=== PATIENT | female | born 1960 | race Hispanic/Latino ===

== ENCOUNTER 2019-04-18 21:39 | Inpatient (IN) | payer OTHER, MEDICARE ==
[~2019-04-18] VITALS: Ht 157.5 cm; Wt 63.9 kg
[2019-04-18 22:16] LABS: BASOPHILS % (AUTO) 0.3 % (0.0-5.0); EOSINOPHILS % (AUTO) 0.1 % (0.0-8.0); HEMATOCRIT 37.4 % (36-48); LYMPHOCYTES % (AUTO) 7.2 % (21.0-51.0); MEAN CORPUSCULAR HEMOGLOBIN 27.5 pg (27.0-33.0); MEAN CORPUSCULAR HGB CONC 32.4 g/dL (32.0-36.0); MONOCYTES % (AUTO) 2.7 % (3.0-13.0); NEUTROPHILS % (AUTO) 89.3 % (40.0-77.0); PLATELET COUNT (AUTO) 429 K/uL (130-400); RED CELL DISTRIBUTION WIDTH 13.9 % (11.0-15.5)
[2019-04-18 22:25] LABS: INR 0.92 (0.85-1.15); PARTIAL THROMBOPLASTIN TIME 26.9 SEC (26.3-35.5); PROTHROMBIN TIME 9.7 SEC (9.6-11.6)
[2019-04-18 22:36] LABS: ALANINE AMINOTRANSFERASE 14 U/L (12-78); ALBUMIN 4.4 g/dL (3.5-5.0); ALCOHOL, BLOOD < 3 mg/dL (0-10); AMYLASE 135 U/L (25-115); ASPARTATE AMINOTRANSFERASE 15 U/L (10-37); BILIRUBIN,TOTAL 0.3 mg/dL (0.2-1.0); CARBON DIOXIDE 19 mmol/L (21-32); CHLORIDE 99 mmol/L (101-111); CREATINE KINASE, TOTAL 34 U/L (21-232); CREATININE 1.8 mg/dL (0.5-1.5); GLOMERULAR FILTR. RATE CALC 31 mL/min (>60); GLUCOSE,RANDOM 147 mg/dL (70-105); LIPASE 674 U/L (114-286); POTASSIUM 3.5 mmol/L (3.5-5.1); SODIUM SERUM 132 mmol/L (136-145); TOTAL PROTEIN, SERUM 8.3 g/dL (6.0-8.3)
[2019-04-18 22:37] LABS: ACETAMINOPHEN < 1 mcg/mL (10-30); SALICYLATE < 2.8 mg/dL (2.8-20.0)
[2019-04-18 22:38] LABS: UREA NITROGEN, BLOOD 84 mg/dL (7-18)
[2019-04-18 22:48] LABS: MAGNESIUM 3.3 mg/dL (1.80-2.40)
[2019-04-18 22:49] LABS: THYROID STIMULATING HORMONE 0.38 uIU/mL (0.36-3.74)
[2019-04-18] MEDS ORDERED: SODIUM CHLORIDE 0.9% 1000ML 1,000 ML IV ONE ×2 (23:11→23:49)
[2019-04-18 23:56] LABS: BILIRUBIN,URINE Negative (NEGATIVE); COLOR,URINE Yellow (YELLOW); GLUCOSE, URINE (UA) Negative (NEGATIVE); KETONES,URINE 15 mg/dL (NEGATIVE); LEUKOCYTE ESTERASE ,URINE Negative (NEGATIVE); NITRATE,URINE Negative (NEGATIVE); OCCULT BLOOD,URINE Negative (NEGATIVE); PH,URINE 5.5 (5.0-8.0); PROTEIN,URINE POS 1+ mg/dL (NEGATIVE); UROBILINOGEN,URINE 0.2 mg/dL (0.2-1.0)
[2019-04-19 00:02] LABS: AMPHET/METH SCREEN,URINE NEGATIVE (NEGATIVE); BARBITURATE SCREEN, URINE NEGATIVE (NEGATIVE); BENZODIAZEPINES SCREEN,URINE NEGATIVE (NEGATIVE); CANNABINOID SCREEN,URINE NEGATIVE (NEGATIVE); COCAINE SCREEN,URINE NEGATIVE (NEGATIVE); OPIATE SCREEN,URINE NEGATIVE (NEGATIVE); PHENCYCLIDINE SCREEN,URINE NEGATIVE (NEGATIVE)
[2019-04-19 00:05] LABS: APPEARANCE,URINE SLIGHTLY CLOUDY (CLEAR)
[2019-04-19 00:13] LABS: RBC,URINE None Seen /HPF (0-1); SQUAMOUS EPITHELIAL CELL,UR Rare /HPF (0-2); WBC,URINE None Seen /HPF (0-1)
[2019-04-19 00:14] LABS: AMORPHOUS SEDIMENT,UR Few /LPF (None Seen); BACTERIA,URINE None Seen /HPF (None Seen)
[2019-04-19] MEDS ORDERED: SODIUM BICARB 50MEQ 50ML VIAL ONE (00:40)
[2019-04-19 06:47] LABS: BASOPHILS % (AUTO) 0.4 % (0.0-5.0); EOSINOPHILS % (AUTO) 0.1 % (0.0-8.0); HEMATOCRIT 34.6 % (36-48); MEAN CORPUSCULAR HEMOGLOBIN 27.8 pg (27.0-33.0); MEAN CORPUSCULAR HGB CONC 32.9 g/dL (32.0-36.0); MEAN CORPUSCULAR VOLUME 84.4 fL (79-99); MONOCYTES % (AUTO) 6.2 % (3.0-13.0); NEUTROPHILS % (AUTO) 82.9 % (40.0-77.0); PLATELET COUNT (AUTO) 376 K/uL (130-400); RED CELL DISTRIBUTION WIDTH 13.8 % (11.0-15.5); WHITE BLOOD COUNT (AUTO) 10.6 K/uL (4.8-10.8)
[2019-04-19 06:57] LABS: CREATININE 1.2 mg/dL (0.5-1.5); POTASSIUM 3.5 mmol/L (3.5-5.1)
[2019-04-19 07:00] LABS: ABG BASE EXCESS -1.6 mmol/L (-2.0-3.0); ABG OXYGEN SATURATION 95.8 % (95.0-99.0); ABG PCO2 30 mmHg (32-45)
[2019-04-19 07:07] LABS: ALBUMIN 3.7 g/dL (3.5-5.0); BILIRUBIN,TOTAL 0.3 mg/dL (0.2-1.0); TOTAL PROTEIN, SERUM 7.2 g/dL (6.0-8.3)
[2019-04-19] MEDS ORDERED: ZOSYN 3.375GM+NS 50ML 50 ML IV ONE (08:37)
[2019-04-19] MEDS ORDERED: DEXTROSE 5 % AND 0.9 % NACL 1,000 ML IV ONE (08:37)
[2019-04-19] MEDS: LACTATED RINGERS 1000ML 1,000 ML IV SCH ×2 (10:01→20:01)
[2019-04-19] MEDS ORDERED: MORPHINE SULFATE 2 MG/ML 1ML SYG IVP PRN (10:15)
[2019-04-19] MEDS ORDERED: NITROGLYCERIN 0.4 MG SL TAB SL PRN (10:15)
[2019-04-19] MEDS ORDERED: HYDRALAZINE HCL 20 MG/ML VIAL IV PRN (10:15)
[2019-04-19] MEDS ORDERED: ONDANSETRON HCL 4 MG/2 ML VIAL IVP PRN (10:15)
[2019-04-19] MEDS ORDERED: IPRATROPIUM/ALBUTEROL SULFATE 3 ML SOLUTION IH PRN (10:15)
--- NOTE | 2019-04-19 10:48 | NUR ---
Unable to Assess Patient is confused and unable to answer any questions. SW unable to complete assessment. No family at bedside. Patient on a 1:1 observation at this time. SW will follow up.
[2019-04-19 10:54] LABS: ABG BASE EXCESS -0.9 mmol/L (-2.0-3.0); ABG HCO3 22.4 mmol/L (21.0-28.0); ABG OXYGEN SATURATION 95.6 % (95.0-99.0); ABG PCO2 34 mmHg (32-45)
--- NOTE | 2019-04-19 11:18 | NUR ---
PT CONFUSED AND UNRESPONSIVE AT TIMES, UNABLE TO OBTAIN A HISTORY NO FAMILY MEMBERS WITH PATIENT Addendum: 04/19/19 at 1119 by ANDRIY CANTU Amended: Links added.
[2019-04-19] MEDS ORDERED: ENOXAPARIN SODIUM 30 MG/0.3 ML SQ ONE (11:44)
[2019-04-19 13:42] VITALS: BP 127/69
--- NOTE | 2019-04-19 14:34 | NUR ---
SPOKE TO FANNY SHELDON, PATIENT'S ONLY DAUGHTER, PROVIDED UPDATE ON PATIENT AND ROOM NUMBER, FANNY CONFIRMED [id number] FOR HER MOTHER AND PART OF HER MEDICAL HISTORY.
[2019-04-19] MEDS ORDERED: DEXTROSE 50%-WATER 50 ML DISP.SYRIN IV PRN (14:45)
[2019-04-19] MEDS ORDERED: GLUCAGON 1MG KIT 1 MG ML IM PRN (14:45)
[2019-04-19] MEDS: DEXTROSE 5 % AND 0.9 % NACL 1,000 ML IV SCH ×2 (15:30→22:10)
[2019-04-19] MEDS ORDERED: SUCCINYLCHOLINE CHLORIDE 20 MG/ML 10 ML VIAL IVP ONE (17:19)
[2019-04-19] MEDS ORDERED: ROCURONIUM BROMIDE 10MG/1ML 5ML VL IV ONE (17:19)
[2019-04-19] MEDS ORDERED: ETOMIDATE 2 MG/ML 10 ML VIAL IVP ONE (17:19)
[2019-04-19] MEDS: INSULIN HUMULIN R 100 UNIT/ML 3ML SQ SCH (18:00)
[2019-04-19] MEDS ORDERED: DULO60CA64 PO (18:25)
[2019-04-19] MEDS ORDERED: LITH600C PO (18:25)
[2019-04-19] MEDS ORDERED: ZOLP5TAB8 PO (18:25)
[2019-04-19] MEDS ORDERED: SIMV-43 PO (18:25)
[2019-04-19] MEDS ORDERED: QUET50TA55 PO (18:25)
[2019-04-19] MEDS ORDERED: LITH300T3 PO (18:25)
[2019-04-19] MEDS ORDERED: TIOT4MIS5 IH (18:25)
[2019-04-19] MEDS ORDERED: MONT10TA26 PO (18:25)
[2019-04-19] MEDS ORDERED: BUDE10.22 IH (18:25)
[2019-04-19] MEDS ORDERED: LEVO5TAB13 PO (18:25)
[2019-04-19] MEDS ORDERED: LEVO100T12 PO (18:25)
[2019-04-19] MEDS ORDERED: LISI10TA7 PO (18:25)
[2019-04-19] MEDS ORDERED: LORA2TAB80 PO (18:25)
--- NOTE | 2019-04-19 20:00 | NUR ---
PATIENT IN BED, DAUGHTER SITTING AT BEDSIDE. DX ALTERED MENTAL STATUS AND PANCREATITIS. PATIENT HAS EYES OPEN, INCOMPREHENSIBLE SOUNDS, CRIES AND MOVING ABOUT IN BED. 1:1 SITTER PRESENT FOR PATIENT SAFETY. SR UP X4, PT WITH F/C DRAINING TO GRAVITY WITH CLEAR YELLOW URINE. PT IS NPO, ORAL CARE DONE. WILL CONT TO MONITOR CLOSELY. Addendum: 04/19/19 at 2256 by ELAN FIGUEROA RN RN Amended: Links added.
[2019-04-19] MEDS: ZOSYN 3.375GM+NS 50ML 50 ML IV SCH (20:38)
[2019-04-19 21:51] VITALS: BP 131/62
[2019-04-19 23:00] VITALS: BP 124/69
[2019-04-20 03:00] VITALS: BP 134/66
[2019-04-20] MEDS: ZOSYN 3.375GM+NS 50ML 50 ML IV SCH ×3 (05:38→21:17)
[2019-04-20] MEDS: INSULIN HUMULIN R 100 UNIT/ML 3ML SQ SCH ×4 (06:00→18:00)
[2019-04-20] MEDS: LACTATED RINGERS 1000ML 1,000 ML IV SCH ×4 (06:12→22:00)
[2019-04-20 06:21] LABS: HEMATOCRIT 33.7 % (36-48); MEAN CORPUSCULAR HGB CONC 32.6 g/dL (32.0-36.0); MEAN CORPUSCULAR VOLUME 85.8 fL (79-99); PLATELET COUNT (AUTO) 341 K/uL (130-400); RED BLOOD CELL COUNT(AUTO) 3.93 MIL/uL (4.00-5.50); RED CELL DISTRIBUTION WIDTH 14.2 % (11.0-15.5); WHITE BLOOD COUNT (AUTO) 14.6 K/uL (4.8-10.8)
[2019-04-20 06:34] LABS: ALBUMIN 3.7 g/dL (3.5-5.0); BILIRUBIN,TOTAL 0.4 mg/dL (0.2-1.0); MAGNESIUM 2.8 mg/dL (1.80-2.40); PHOSPHORUS 1.9 mg/dL (2.5-4.9); POTASSIUM 3.3 mmol/L (3.5-5.1); TOTAL PROTEIN, SERUM 7.1 g/dL (6.0-8.3)
[2019-04-20] MEDS ORDERED: LIDOCAINE HCL-MPF 1% 2ML VIAL IV PRN (07:30)
[2019-04-20] MEDS ORDERED: POTASSIUM CHLORIDE 20 MEQ ERTAB PO PRN (07:30)
[2019-04-20 08:00] VITALS: BP 134/66
[2019-04-20] MEDS: FAMOTIDINE/PF 20 MG/2 ML VIAL IV SCH ×2 (09:42→21:23)
[2019-04-20] MEDS: ENOXAPARIN SODIUM 30 MG/0.3 ML SQ SCH (09:42)
[2019-04-20 12:00] VITALS: BP 147/74
--- NOTE | 2019-04-20 16:51 | NUR ---
INITIAL SW spoke with daughter, Maggie Worthy, [phone]. No home services at this time. Daughter states she used to be patient's provider. Services were discontinued over a year ago. Daughter plans to follow up to get services restarted. As per daughter, patient needs help to complete ADL's and does not drive. Daughter states that patient forgets to take her medications or takes the wrong dose at home if she is not reminded. PCP is Dr. Rianna Kelsey. Pharmacy is [facility] located on [address]. Daughter informed SW that patient suffers from Bipolar, Schizophrenia and Depression. Patient is under the care of a Psychiatrist but does not remember the name. Patient has not been in a psychiatric hospital in the past 2 years as per daughter. DCP is home. Patient continues on a 1:1 observation at this time due to being confused. Daughter states that patient was up last night and now sleeping during that day. Addendum: 04/20/19 at 1658 by CATHIE MAHER SS Amended: Links added.
[2019-04-20] MEDS: POTASSIUM CHLORIDE 20MEQ/100ML 100 ML IV PRN (18:26)
[2019-04-20 19:00] VITALS: BP 139/65
[2019-04-20] MEDS ORDERED: LACTATED RINGERS 1000ML 1,000 ML IV ONE (20:24)
[2019-04-20 22:30] VITALS: BP 144/68
--- NOTE | 2019-04-20 22:36 | NUR ---
Patient was transferred to ICU room 206 for lithium toxicity at 2200. Family was made aware through phone call spoke to the daughter. Ordered by SOFTWARE CLERK Enrique Zayas to be transferred to ICU. Zeb was consulted for elevated BUN and lithium toxicity and is aware of patient and new consult.
[2019-04-20 23:30] VITALS: BP 133/62
[2019-04-21] VITALS (49 sets, daily range): BP systolic 79–185; BP diastolic 37–107
[2019-04-21] MEDS: ZOSYN 3.375GM+NS 50ML 50 ML IV SCH ×3 (04:05→21:10)
[2019-04-21] MEDS: LACTATED RINGERS 1000ML 1,000 ML IV SCH (04:08)
[2019-04-21 04:17] LABS: HEMATOCRIT 33.2 % (36-48); MEAN CORPUSCULAR HEMOGLOBIN 27.9 pg (27.0-33.0); MEAN CORPUSCULAR HGB CONC 31.3 g/dL (32.0-36.0); PLATELET COUNT (AUTO) 313 K/uL (130-400); RED BLOOD CELL COUNT(AUTO) 3.73 MIL/uL (4.00-5.50); RED CELL DISTRIBUTION WIDTH 14.6 % (11.0-15.5); WHITE BLOOD COUNT (AUTO) 15.9 K/uL (4.8-10.8)
[2019-04-21 04:31] LABS: ALBUMIN 3.4 g/dL (3.5-5.0); BILIRUBIN,DIRECT 0.1 mg/dL (0.0-0.3); BILIRUBIN,TOTAL 0.4 mg/dL (0.2-1.0); POTASSIUM 3.3 mmol/L (3.5-5.1); TOTAL PROTEIN, SERUM 6.6 g/dL (6.0-8.3)
[2019-04-21] MEDS: POTASSIUM CHLORIDE 20MEQ/100ML 100 ML IV PRN ×2 (05:46→10:36)
[2019-04-21] MEDS: INSULIN HUMULIN R 100 UNIT/ML 3ML SQ SCH ×4 (06:00→18:00)
[2019-04-21] MEDS ORDERED: DEXTROSE 5%-WATER 1,000 ML IV ONE (09:30)
[2019-04-21 10:25] LABS: ABG BASE EXCESS 0.2 mmol/L (-2.0-3.0); ABG HCO3 23.1 mmol/L (21.0-28.0); ABG OXYGEN SATURATION 92.7 % (95.0-99.0); ABG PCO2 33 mmHg (32-45)
[2019-04-21] MEDS: FAMOTIDINE/PF 20 MG/2 ML VIAL IV SCH ×2 (10:34→21:10)
[2019-04-21] MEDS: ENOXAPARIN SODIUM 30 MG/0.3 ML SQ SCH (10:34)
[2019-04-21] MEDS: DEXTROSE 5%-WATER 1,000 ML IV SCH ×2 (10:35→21:10)
[2019-04-21] MEDS ORDERED: THIAMINE HCL 100 MG/ML 2ML VIAL IVP SCH (14:00)
[2019-04-21] MEDS ORDERED: PROPOFOL 1000 MG/100 ML 100 ML IV ONE (15:38)
[2019-04-21] MEDS ORDERED: LORAZEPAM 2 MG/ML 1 ML VIAL ONE (15:52)
[2019-04-21] MEDS ORDERED: COMPOUND IV MISC 1 EACH IVSOLN MISC PRN (16:15)
[2019-04-21] MEDS ORDERED: LORAZEPAM 2 MG/ML 1 ML VIAL IVP ONE (16:30)
[2019-04-21] MEDS ORDERED: PROPOFOL 1000 MG/100 ML IV PRN (16:30)
[2019-04-21] MEDS ORDERED: LORAZEPAM 2 MG/ML 1 ML VIAL IM ONE (16:30)
[2019-04-21] MEDS: FENTANYL 1000MCG+NS 100ML 100 ML IV PRN (16:48)
[2019-04-21 16:53] LABS: ABG BASE EXCESS -0.4 mmol/L (-2.0-3.0); ABG HCO3 22.8 mmol/L (21.0-28.0); ABG OXYGEN SATURATION 99.4 % (95.0-99.0); ABG PCO2 33 mmHg (32-45)
[2019-04-21] MEDS ORDERED: LEVETIRACETAM 500 MG in SODIUM CHLORIDE 0.9% 100 ML IV SCH (21:00)
[2019-04-22] VITALS (63 sets, daily range): BP systolic 85–127; BP diastolic 45–71
[2019-04-22 03:53] LABS: BASOPHILS % (AUTO) 0.3 % (0.0-5.0); EOSINOPHILS % (AUTO) 4.2 % (0.0-8.0); HEMATOCRIT 33.3 % (36-48); LYMPHOCYTES % (AUTO) 25.6 % (21.0-51.0); MEAN CORPUSCULAR HEMOGLOBIN 27.8 pg (27.0-33.0); MEAN CORPUSCULAR VOLUME 92.5 fL (79-99); MONOCYTES % (AUTO) 4.8 % (3.0-13.0); NEUTROPHILS % (AUTO) 64.9 % (40.0-77.0); PLATELET COUNT (AUTO) 235 K/uL (130-400); RED CELL DISTRIBUTION WIDTH 14.6 % (11.0-15.5); WHITE BLOOD COUNT (AUTO) 12.6 K/uL (4.8-10.8)
[2019-04-22 04:08] LABS: ALBUMIN 2.9 g/dL (3.5-5.0); BILIRUBIN,DIRECT 0.1 mg/dL (0.0-0.3); BILIRUBIN,TOTAL 0.4 mg/dL (0.2-1.0); MAGNESIUM 3.3 mg/dL (1.80-2.40); PHOSPHORUS 2.3 mg/dL (2.5-4.9)
[2019-04-22 04:12] LABS: CREATININE 0.9 mg/dL (0.5-1.5)
[2019-04-22] MEDS: ZOSYN 3.375GM+NS 50ML 50 ML IV SCH ×3 (04:30→21:14)
[2019-04-22] MEDS: INSULIN HUMULIN R 100 UNIT/ML 3ML SQ SCH ×4 (06:00→17:59)
[2019-04-22] MEDS: DEXTROSE 5%-WATER 1,000 ML IV SCH ×2 (06:22→14:40)
[2019-04-22] MEDS: MIDAZOLAM HCL 50 MG in SODIUM CHLORIDE 0.9% 50 ML IV SCH (06:29)
[2019-04-22] MEDS ORDERED: LEVETIRACETAM 1,000 MG in SODIUM CHLORIDE 0.9% 100 ML IV SCH (09:45)
[2019-04-22] MEDS: ENOXAPARIN SODIUM 30 MG/0.3 ML SQ SCH (10:32)
[2019-04-22] MEDS: THIAMINE HCL 100 MG/ML 2ML VIAL IVP SCH (10:32)
[2019-04-22] MEDS: FAMOTIDINE/PF 20 MG/2 ML VIAL IV SCH ×2 (10:32→21:15)
[2019-04-22] MEDS: LEVETIRACETAM 1,000 MG in SODIUM CHLORIDE 0.9% 100 ML IV SCH ×2 (10:43→22:19)
[2019-04-22] MEDS: FENTANYL 1000MCG+NS 100ML 100 ML IV PRN (10:45)
--- NOTE | 2019-04-22 13:56 | NUR ---
Attempt to contact family/ No Family Visit Reason for attempt of contact is to discuss plan of care of critically ill patient. Patient is on vasopressors, multiple medications intubated/sedated, critically ill, and interventions need to be done in regards to patients condition, unfortunately patient lacks capacity to make own health care decisions. Family has been attempted to be contacted by phone since no family has been by the bedside or called in more than 24hrs. 2 calls were made to Jewel(son) with no answer, 2 calls were made to Néstor(son) with no answer, but voicemail was left, and 2 calls were made to Alexandro(son) with no answer but voicemail was also left. Addendum: 04/22/19 at 1417 by DEBRA TAYLOR RN Incorrect Patient note
--- NOTE | 2019-04-22 14:27 | NUR ---
RD Notification - Tube Feeding Recommendations 1) Tube feeding recommendations: Jevity 1.5, continuous tube feeding Recommend to initiate feeding at 25mls/hr, increase by 5mls Q5hrs to goal of 45mls/hr (1620kcal/69gm Protein) to meet Pt's nutritional needs. 2) Recommended flushes: 150ml Q6hrs. Recommendations placed in Pt chart. RN notified. RD to continue to monitor. Please notify as additional concerns arise. Thank you. PAULINE Note: Pt admitted with AMS, Pancreatitis, Jermyn toxicity. RD notified for tube feeding recommendations. RD to continue to monitor nutritional labs and tube feeding tolerance. Addendum: 04/22/19 at [address] RD Amended: Links added.
[2019-04-23] VITALS (24 sets, daily range): BP systolic 90–154; BP diastolic 42–78
[2019-04-23] MEDS: DEXTROSE 5%-WATER 1,000 ML IV SCH (03:02)
[2019-04-23 03:49] LABS: BASOPHILS % (AUTO) 0.2 % (0.0-5.0); EOSINOPHILS % (AUTO) 8.1 % (0.0-8.0); HEMATOCRIT 34.3 % (36-48); LYMPHOCYTES % (AUTO) 20.2 % (21.0-51.0); MEAN CORPUSCULAR HEMOGLOBIN 27.5 pg (27.0-33.0); MEAN CORPUSCULAR VOLUME 91.7 fL (79-99); MONOCYTES % (AUTO) 4.6 % (3.0-13.0); NEUTROPHILS % (AUTO) 66.6 % (40.0-77.0); PLATELET COUNT (AUTO) 226 K/uL (130-400); RED BLOOD CELL COUNT(AUTO) 3.74 MIL/uL (4.00-5.50); RED CELL DISTRIBUTION WIDTH 14.1 % (11.0-15.5); WHITE BLOOD COUNT (AUTO) 12.7 K/uL (4.8-10.8)
[2019-04-23 04:05] LABS: ALBUMIN 2.8 g/dL (3.5-5.0); BILIRUBIN,TOTAL 0.3 mg/dL (0.2-1.0); CREATININE 0.8 mg/dL (0.5-1.5); POTASSIUM 3.8 mmol/L (3.5-5.1); TOTAL PROTEIN, SERUM 6.1 g/dL (6.0-8.3)
[2019-04-23] MEDS: ZOSYN 3.375GM+NS 50ML 50 ML IV SCH ×3 (04:29→21:12)
[2019-04-23] MEDS: FENTANYL 1000MCG+NS 100ML 100 ML IV PRN (06:00)
[2019-04-23] MEDS: INSULIN HUMULIN R 100 UNIT/ML 3ML SQ SCH ×4 (07:38→17:01)
[2019-04-23] MEDS: THIAMINE HCL 100 MG/ML 2ML VIAL IVP SCH (08:06)
[2019-04-23] MEDS: FAMOTIDINE/PF 20 MG/2 ML VIAL IV SCH ×2 (08:06→21:13)
[2019-04-23] MEDS: ENOXAPARIN SODIUM 30 MG/0.3 ML SQ SCH (08:07)
[2019-04-23] MEDS: MIDAZOLAM HCL 50 MG in SODIUM CHLORIDE 0.9% 50 ML IV SCH (08:28)
[2019-04-23] MEDS: LEVETIRACETAM 1,000 MG in SODIUM CHLORIDE 0.9% 100 ML IV SCH ×2 (09:46→22:07)
[2019-04-23 16:10] LABS: ABG BASE EXCESS -1.7 mmol/L (-2.0-3.0); ABG HCO3 21.5 mmol/L (21.0-28.0); ABG OXYGEN SATURATION 98.6 % (95.0-99.0); ABG PCO2 32 mmHg (32-45)
[2019-04-24] VITALS (14 sets, daily range): BP systolic 123–139; BP diastolic 59–79
[2019-04-24] MEDS: ZOSYN 3.375GM+NS 50ML 50 ML IV SCH ×3 (05:29→20:20)
[2019-04-24] MEDS: INSULIN HUMULIN R 100 UNIT/ML 3ML SQ SCH ×4 (06:00→17:30)
--- NOTE | 2019-04-24 08:15 | NUR ---
PATIENT A/O X4, FOLLOWING COMMANDS, GREAT EFFORT. DR. VEGA MADE AWARE OF ABG RESULTS AND PATIENTS EFFORT AND STRENGTH TODAY HAS IMPROVED FROM YESTERDAY. PATIENT TOLERATED CPAP ALL NIGHT WITH NO ISSUES. DR. VEGA STATED OK TO EXTUBATE PATIENT POST LASIX 40MG IV X 1 DOSE PRIOR TO EXTUBATION. RT MADE AWARE. PENDING EXTUBATION AT THIS TIME.
[2019-04-24 08:30] LABS: ABG BASE EXCESS 1.7 mmol/L (-2.0-3.0); ABG HCO3 25.7 mmol/L (21.0-28.0); ABG OXYGEN SATURATION 98.5 % (95.0-99.0); ABG PCO2 38 mmHg (32-45)
[2019-04-24] MEDS ORDERED: FUROSEMIDE 10 MG/ML 4ML VIAL IV SCH (08:45)
[2019-04-24] MEDS: ENOXAPARIN SODIUM 30 MG/0.3 ML SQ SCH (08:52)
[2019-04-24] MEDS: FAMOTIDINE/PF 20 MG/2 ML VIAL IV SCH ×2 (08:53→20:20)
[2019-04-24] MEDS: THIAMINE HCL 100 MG/ML 2ML VIAL IVP SCH (08:53)
--- NOTE | 2019-04-24 09:20 | NUR ---
PATIENT EXTUBATED. PATIENT TOLERATED WELL.
[2019-04-24] MEDS: LEVETIRACETAM 1,000 MG in SODIUM CHLORIDE 0.9% 100 ML IV SCH ×2 (11:25→22:56)
[2019-04-24 11:39] LABS: ABG HCO3 26.9 mmol/L (21.0-28.0); ABG OXYGEN SATURATION 98.3 % (95.0-99.0); ABG PCO2 39 mmHg (32-45)
--- NOTE | 2019-04-24 17:25 | NUR ---
ON INITIAL BEDSIDE SWALLOW PATIENT TOLERATED ICE CHIPS AND SIPS OF WATER PERFECTLY FINE. NO ISSUES. HOWEVER, LATER EVAL PRIOR TO DINNER CLEAR LIQUID DIET SHOWED THAT SHE COULD NOT TOLERATE AND BEGAN COUGHING. AT THIS TIME, I STOPPED IMMEDIATELY. I REMOVED DIET. PENDING SWALLOW AND DIET RECOMMENDATIONS FROM SPEECH TOMORROW.
--- NOTE | 2019-04-25 00:30 | NUR ---
Patient Found with DC PIV Patient acknowledge self removal of IV, but will not provide any reason. Dressing applied and reoriented to reason behind IV.
--- NOTE | 2019-04-25 03:30 | NUR ---
Patient messing with PIV Patient observed removing the tape of PIV, patient reoriented on reason for IV and patient acknowledge and states she wont pull 2nd IV
[2019-04-25 04:34] LABS: HEMATOCRIT 34.7 % (36-48); MEAN CORPUSCULAR HEMOGLOBIN 27.8 pg (27.0-33.0); MEAN CORPUSCULAR HGB CONC 31.1 g/dL (32.0-36.0); MEAN CORPUSCULAR VOLUME 89.2 fL (79-99); PLATELET COUNT (AUTO) 243 K/uL (130-400); RED BLOOD CELL COUNT(AUTO) 3.89 MIL/uL (4.00-5.50); RED CELL DISTRIBUTION WIDTH 13.7 % (11.0-15.5); WHITE BLOOD COUNT (AUTO) 13.2 K/uL (4.8-10.8)
[2019-04-25 04:56] LABS: CREATININE 0.8 mg/dL (0.5-1.5); POTASSIUM 3.8 mmol/L (3.5-5.1)
--- NOTE | 2019-04-25 05:00 | NUR ---
Patient DC IV Patient has DC 2 PIV, patient is not engaging with nursing staff and will not respond to questions regarding matter. Patient continues to be awake and alert, patient behavior is withdrawn also avoids eye contact
[2019-04-25] MEDS: ZOSYN 3.375GM+NS 50ML 50 ML IV SCH ×3 (05:10→23:37)
[2019-04-25] MEDS: INSULIN HUMULIN R 100 UNIT/ML 3ML SQ SCH ×5 (06:00→21:00)
[2019-04-25] MEDS: THIAMINE HCL 100 MG/ML 2ML VIAL IVP SCH (08:37)
[2019-04-25] MEDS: ENOXAPARIN SODIUM 30 MG/0.3 ML SQ SCH (08:38)
[2019-04-25] MEDS: FAMOTIDINE/PF 20 MG/2 ML VIAL IV SCH ×2 (08:38→23:37)
--- NOTE | 2019-04-25 09:45 | NUR ---
DYSPHAGIA EVAL COMPLETED. +S/S OF ASPIRATION WITH THIN LIQUIDS VIA STRAW. RECOMMEND FINELY CHOPPED, THIN LIQUIDS, PILLS WHOLE WITH LIQUIDS. NO STRAW. GLASS NOVELTY MAKER EDUCATED Pt AND ON RISKS AND CONSEQUENCES OF ASPIRATION. RESULTS AND RECOMMENDATIONS WERE PROVIDED. THEY VERBALIZED UNDERSTANDING AND COMPLIANCE WITH RECOMMENDATIONS. GLASS NOVELTY MAKER WROTE RECOMMENDATIONS ON WHITEBOARD. ALL QUESTIONS ANSWERED AT THIS TIME. Addendum: 04/25/19 at 1248 by [facility] Amended: Links added.
[2019-04-25] MEDS: LEVETIRACETAM 1,000 MG in SODIUM CHLORIDE 0.9% 100 ML IV SCH (11:24)
--- NOTE | 2019-04-25 15:10 | NUR ---
CHARGE NURSE MURIEL MAGUIRE MADE AWARE OF DOWN GRADE TO MEDICAL FLOOR WITH TELE
[2019-04-25 16:29] VITALS: BP 161/80
[2019-04-25 19:08] VITALS: BP 157/84
[2019-04-25 23:23] VITALS: BP 163/75
[2019-04-26] MEDS: LEVETIRACETAM 1,000 MG in SODIUM CHLORIDE 0.9% 100 ML IV SCH ×3 (01:01→23:35)
[2019-04-26 03:15] VITALS: BP 162/74
[2019-04-26 04:39] LABS: HEMATOCRIT 33.6 % (36-48); MEAN CORPUSCULAR HEMOGLOBIN 27.4 pg (27.0-33.0); MEAN CORPUSCULAR HGB CONC 31.5 g/dL (32.0-36.0); MEAN CORPUSCULAR VOLUME 86.8 fL (79-99); PLATELET COUNT (AUTO) 289 K/uL (130-400); RED BLOOD CELL COUNT(AUTO) 3.87 MIL/uL (4.00-5.50); RED CELL DISTRIBUTION WIDTH 13.5 % (11.0-15.5); WHITE BLOOD COUNT (AUTO) 12.6 K/uL (4.8-10.8)
[2019-04-26] MEDS: ZOSYN 3.375GM+NS 50ML 50 ML IV SCH ×3 (05:00→20:20)
[2019-04-26 05:02] LABS: BILIRUBIN,DIRECT 0.1 mg/dL (0.0-0.3); BILIRUBIN,TOTAL 0.3 mg/dL (0.2-1.0); CREATININE 0.8 mg/dL (0.5-1.5); POTASSIUM 3.5 mmol/L (3.5-5.1); TOTAL PROTEIN, SERUM 6.4 g/dL (6.0-8.3)
[2019-04-26] MEDS: INSULIN HUMULIN R 100 UNIT/ML 3ML SQ SCH ×4 (07:14→21:00)
[2019-04-26 08:13] VITALS: BP 147/87
[2019-04-26] MEDS: FAMOTIDINE/PF 20 MG/2 ML VIAL IV SCH ×2 (09:25→20:20)
[2019-04-26] MEDS: THIAMINE HCL 100 MG/ML 2ML VIAL IVP SCH (09:25)
[2019-04-26] MEDS: ENOXAPARIN SODIUM 30 MG/0.3 ML SQ SCH (09:27)
[2019-04-26 11:03] VITALS: BP 137/80
[2019-04-26 14:50] LABS: APPEARANCE,URINE Clear (CLEAR); BILIRUBIN,URINE Negative (NEGATIVE); COLOR,URINE Yellow (YELLOW); GLUCOSE, URINE (UA) Negative (NEGATIVE); KETONES,URINE Negative (NEGATIVE); LEUKOCYTE ESTERASE ,URINE Negative (NEGATIVE); NITRATE,URINE Negative (NEGATIVE); OCCULT BLOOD,URINE Large (NEGATIVE); PH,URINE 7.5 (5.0-8.0); PROTEIN,URINE Negative (NEGATIVE); UROBILINOGEN,URINE 0.2 mg/dL (0.2-1.0)
[2019-04-26 15:01] LABS: BACTERIA,URINE Few /HPF (None Seen); RBC,URINE 26-50 /HPF (0-1); SQUAMOUS EPITHELIAL CELL,UR 0-2 /HPF (0-2)
--- NOTE | 2019-04-26 15:15 | NUR ---
RD FOLLOW UP Pt tolerating current diet order. Pt reports good appetite, however via observation, Pt only ate about 25% lunch. Recommend Ensure QD. RD to continue to monitor. Please notify RD as additional nutrition concerns arise. thank you. Addendum: 04/26/19 at [address] Amended: Links added.
[2019-04-26 15:44] VITALS: BP 142/86
--- NOTE | 2019-04-26 16:29 | NUR ---
CM Note: [facility] pending ins auth and acceptance CM met with pt discussed MD recommendations for short term placement rehab, pt agreeable, JUHI signed for [facility]. Faxed order, clinicals, PT, and PAS[facility], confirmation received. Spoke to Deana w/[facility], will come eval pt. Pt pending ins auth and acceptance. EMS filled out pending to be faxed w/current date. Primary nurse aware. CM to cont to follow up.
[2019-04-26 19:00] VITALS: BP 140/72
--- NOTE | 2019-04-26 19:00 | NUR ---
STATUS Pt aao x 1,family at bedside.Pt not in distress.Instructed to use call ligh,side rails up x 2.Bed alarm on. Addendum: 04/27/19 at 0152 by ALISON SHAH RN RN MIR CATHETER WAS DCD.PER KEITH MAGUIRE.
--- NOTE | 2019-04-26 21:00 | NUR ---
ASLEEP Pt appears to be asleep,eyes closed.Respirations even and unlabored.
[2019-04-26 23:51] VITALS: BP 144/81
--- NOTE | 2019-04-27 01:00 | NUR ---
VOIDING Pt voided on the bedpan. Addendum: 04/27/19 at 0152 by ALISON SHAH RN RN Amended: Links added.
[2019-04-27 04:00] VITALS: BP 146/78
[2019-04-27] MEDS: ZOSYN 3.375GM+NS 50ML 50 ML IV SCH ×3 (04:35→22:20)
--- NOTE | 2019-04-27 04:48 | NUR ---
AWAKE Pt awake,alert oriented x 2.States she would like to go home today.States "I miss my grand kids".Bed bath given per staff.
[2019-04-27 05:33] LABS: BASOPHILS % (AUTO) 0.5 % (0.0-5.0); EOSINOPHILS % (AUTO) 3.2 % (0.0-8.0); HEMATOCRIT 32.3 % (36-48); LYMPHOCYTES % (AUTO) 32.2 % (21.0-51.0); MEAN CORPUSCULAR HEMOGLOBIN 27.3 pg (27.0-33.0); MEAN CORPUSCULAR HGB CONC 31.6 g/dL (32.0-36.0); MEAN CORPUSCULAR VOLUME 86.4 fL (79-99); MONOCYTES % (AUTO) 6.6 % (3.0-13.0); NEUTROPHILS % (AUTO) 57.2 % (40.0-77.0); PLATELET COUNT (AUTO) 304 K/uL (130-400); RED BLOOD CELL COUNT(AUTO) 3.74 MIL/uL (4.00-5.50); RED CELL DISTRIBUTION WIDTH 13.4 % (11.0-15.5)
[2019-04-27 05:43] LABS: INR 0.99 (0.85-1.15); PROTHROMBIN TIME 10.7 SEC (9.6-11.6)
[2019-04-27 05:53] LABS: B-TYPE NATRIURETIC PEPTIDE 106 pg/mL (0-100)
[2019-04-27] MEDS: INSULIN HUMULIN R 100 UNIT/ML 3ML SQ SCH ×3 (05:57→21:00)
[2019-04-27 08:00] VITALS: BP 154/73
--- NOTE | 2019-04-27 09:01 | NUR ---
RD UPDATE Pt with Poor PO, decreased appetite. Recommend to add Ensure BID. Pt with AMS. RD to continue to monitor.
[2019-04-27] MEDS: FAMOTIDINE/PF 20 MG/2 ML VIAL IV SCH ×2 (09:19→22:15)
[2019-04-27] MEDS: THIAMINE HCL 100 MG/ML 2ML VIAL IVP SCH (09:20)
[2019-04-27] MEDS ORDERED: ACETAMINOPHEN 325 MG TAB PO PRN (09:45)
[2019-04-27 09:56] LABS: CREATININE 0.8 mg/dL (0.5-1.5)
[2019-04-27 10:01] LABS: POTASSIUM 2.9 mmol/L (3.5-5.1)
[2019-04-27] MEDS: POTASSIUM CHLORIDE 20MEQ/100ML 100 ML IV PRN (10:16)
[2019-04-27] MEDS: POTASSIUM CHLORIDE 10% ELIXIR 20 MEQ/15 ML UDCUP PO PRN ×2 (10:16→15:34)
[2019-04-27] MEDS ORDERED: SODIUM CHLORIDE 0.9% 250 ML IV ONE (10:23)
[2019-04-27] MEDS: PHENAZOPYRIDINE HCL 200 MG TABLET PO SCH ×2 (10:29→22:15)
[2019-04-27] MEDS: LACTOBACILLUS RHAMNOSUS GG 1 EACH CAP.SPRINK PO SCH (10:29)
[2019-04-27] MEDS: POTASSIUM CHLORIDE 20 MEQ ERTAB PO SCH ×2 (10:50→22:16)
--- NOTE | 2019-04-27 10:55 | NUR ---
ABDOMINAL BINDER, PYRIDIUM, POTASSIUM Applied abdominal binder as ordered. Gave pyridium for pain with urination. Started on potassium protocol and administered potassium STAT as ordered as well. Patient in bed, no distress other than the pain with urination. Denies any needs. Requested tylenol in addition to pyridium and administered.
[2019-04-27 12:11] VITALS: BP 140/88
[2019-04-27] MEDS: LEVETIRACETAM 1,000 MG in SODIUM CHLORIDE 0.9% 100 ML IV SCH ×2 (12:58→22:37)
--- NOTE | 2019-04-27 13:39 | NUR ---
CM Note: [employer]anny Powell pending ins auth CM spoke to Deana Latif, updated clinicals received and forwarded to insurance this morning. Pt pending ins auth at this time. Primary nurse aware. CM to cont to follow up.
--- NOTE | 2019-04-27 14:59 | NUR ---
BOWEL MOVEMENTS Patient has had multiple bowel movements, with clear, yellow fluid and green, loose stools. Elizabeth Wilkins NP was notified. Stated she will enter orders.
[2019-04-27 16:00] VITALS: BP 144/77
--- NOTE | 2019-04-27 16:06 | NUR ---
CM Note: [employer] ins auth CM spoke to Deana Latif, pt has ins auth. EMS arranged and faxed for today, primary nurse to call [facility] once pt ready to DC. Primary nurse aware. CM to cont to follow up.
--- NOTE | 2019-04-27 19:18 | NUR ---
C.DIFF Sample sent and pending results.
[2019-04-27 19:53] VITALS: BP 123/65
[2019-04-27] MEDS: LACTATED RINGERS 1000ML 1,000 ML IV SCH (22:20)
[2019-04-27 23:24] VITALS: BP 126/73
[2019-04-28 03:02] VITALS: BP 147/75
[2019-04-28 05:22] LABS: HEMATOCRIT 32.1 % (36-48); MEAN CORPUSCULAR HEMOGLOBIN 27.7 pg (27.0-33.0); MEAN CORPUSCULAR HGB CONC 31.5 g/dL (32.0-36.0); MEAN CORPUSCULAR VOLUME 87.9 fL (79-99); PLATELET COUNT (AUTO) 318 K/uL (130-400); RED BLOOD CELL COUNT(AUTO) 3.65 MIL/uL (4.00-5.50); RED CELL DISTRIBUTION WIDTH 13.9 % (11.0-15.5); WHITE BLOOD COUNT (AUTO) 9.5 K/uL (4.8-10.8)
[2019-04-28 06:01] LABS: CREATININE 0.8 mg/dL (0.5-1.5); MAGNESIUM 1.9 mg/dL (1.80-2.40); POTASSIUM 3.9 mmol/L (3.5-5.1)
[2019-04-28] MEDS: ZOSYN 3.375GM+NS 50ML 50 ML IV SCH (06:09)
[2019-04-28] MEDS: INSULIN HUMULIN R 100 UNIT/ML 3ML SQ SCH (06:35)
[2019-04-28 07:32] VITALS: BP 139/74
[2019-04-28] MEDS ORDERED: 1/2 NORMAL SALINE 1,000 ML IV SCH (09:00)
[2019-04-28] MEDS: PHENAZOPYRIDINE HCL 200 MG TABLET PO SCH (09:54)
[2019-04-28] MEDS: LACTOBACILLUS RHAMNOSUS GG 1 EACH CAP.SPRINK PO SCH (09:54)
[2019-04-28] MEDS: FAMOTIDINE/PF 20 MG/2 ML VIAL IV SCH (09:55)
[2019-04-28] MEDS: THIAMINE HCL 100 MG/ML 2ML VIAL IVP SCH (09:55)
[2019-04-28] MEDS: POTASSIUM CHLORIDE 20 MEQ ERTAB PO SCH (09:55)
[2019-04-28] MEDS: LEVETIRACETAM 1,000 MG in SODIUM CHLORIDE 0.9% 100 ML IV SCH ×2 (10:45→11:53)
[2019-04-28 10:48] VITALS: BP 158/86
--- NOTE | 2019-04-28 11:35 | NUR ---
DISCHARGE PATIENT/SPOUSE (TARIQ WITT) GIVEN DISCHARGE INSTRUCTIONS VIA TEACH BACK. 18G PIV TO R ARM DISCONTINUED, TIP INTACT. PATIENT TO TRANSFER TO [facility] AMBULANCE IN [place]. REPORT GIVEN TO BENEDICT PATEL LVN. PATIENT TO CONTINUE ZOSYN AND PHYSICAL THERAPY TREATMENTS. PATIENT STABLE AT THIS TIME. PENDING EMS TRANSFER. REPORT GIVEN TO ANDREZ DUNNE.
[2019-04-28] MEDS ORDERED: LEVETIRACETAM 500 MG TABLET PO ONE (12:04)
--- NOTE | 2019-04-28 12:06 | NUR ---
PATIENT GIVEN KEPPRA 1000MG PO DUE TO IV INFILTRATED AND HAD ALREADY BEEN REMOVED. PATIENT TO RECEIVE KEPPRA PO AT [facility]. PATIENT TOLERATED ORAL ADMINISTRATION WELL.
== END 2019-04-28 12:15 | DRG 438 ==
LOC: EDH 21:39 → EDHIP 04-19 00:15 → OBSVTOIN 04-19 00:15 → 3DH 04-19 02:16 → EDHIP 04-19 03:38 → 4DH 04-19 12:25 → 2BH 04-20 21:58 → 4CH 04-25 19:34 → 3CH 04-26 08:10
PROVIDERS: ADMIT Internal Medicine Critical Care Medicine; ATTEND Internal Medicine Critical Care Medicine
PROC: 5A1945Z Respiratory Ventilation, 24-96 Consecutive Hours (ICD-10-PCS; principal; 2019-04-21)
PROC: 0BH17EZ Insertion of Endotracheal Airway into Trachea, Via Natural or Artificial Opening (ICD-10-PCS; 2019-04-21)
DX: K85.90 Acute pancreatitis without necrosis or infection, unspecified (principal); G93.41 Metabolic encephalopathy; J96.01 Acute respiratory failure with hypoxia; R64 Cachexia; E87.0 Hyperosmolality and hypernatremia; E46 Unspecified protein-calorie malnutrition; E87.1 Hypo-osmolality and hyponatremia; T43.595A Adverse effect of other antipsychotics and neuroleptics, initial encounter; E03.9 Hypothyroidism, unspecified; F20.9 Schizophrenia, unspecified; E86.0 Dehydration; E78.00 Pure hypercholesterolemia, unspecified; F31.9 Bipolar disorder, unspecified; R31.9 Hematuria, unspecified; R56.9 Unspecified convulsions; R19.7 Diarrhea, unspecified; D72.829 Elevated white blood cell count, unspecified; Z90.710 Acquired absence of both cervix and uterus; Z98.84 Bariatric surgery status; R94.31 Abnormal electrocardiogram [ECG] [EKG]; D64.9 Anemia, unspecified; Z68.25 Body mass index [BMI] 25.0-25.9, adult; E78.5 Hyperlipidemia, unspecified; E87.6 Hypokalemia; I10 Essential (primary) hypertension; J44.9 Chronic obstructive pulmonary disease, unspecified; K76.0 Fatty (change of) liver, not elsewhere classified; Z79.51 Long term (current) use of inhaled steroids; Z74.01 Bed confinement status; Z79.899 Other long term (current) drug therapy
CPT/HCPCS: 31500; 36415; 36600; 70450; 71045; 74176; 76700; 80048; 80053; 80076; 80178; 80305; 81001; 82140; 82150; 82435; 82550; 82803; 82947; 82948; 83605; 83690; 83735; 83880; 83935; 84100; 84132; 84145; 84295; 84300; 84443; 84484; 85018; 85025; 85027; 85610; 85730; 87040; 87088; 87324; 87493; 92610; 93005; 93306; 93356; 94002; 94003; 94664; 97039; C9113; G0378; G0480; G0481; J0330; J1650; J1815; J1940; J1953; J2060; J2250; J2543; J2704; J3010; J3411; J3480; J3490; J7030; J7042; J7070; J7120

== ENCOUNTER 2022-05-17 12:20 | Emergency (ER) | payer OTHER, MEDICARE ==
[~2022-05-17] VITALS: Ht 157.5 cm; Wt 75.7 kg
[~2022-05-17 12:20] MED LIST: BUDE10.22 IH; LEVO100T12 PO; LEVO5TAB13 PO; LISI10TA24 PO; MONT-39 PO; SIMV-43 PO; TIOT4MIS5 IH
[2022-05-17 13:21] LABS: BASOPHILS % (AUTO) 0.4 % (0.0-5.0); EOSINOPHILS % (AUTO) 0.4 % (0.0-8.0); HEMATOCRIT 35.8 % (36-48); LYMPHOCYTES % (AUTO) 22.2 % (21.0-51.0); MEAN CORPUSCULAR HEMOGLOBIN 25.6 pg (27.0-33.0); MEAN CORPUSCULAR HGB CONC 31.3 g/dL (32.0-36.0); MEAN CORPUSCULAR VOLUME 81.7 fL (79-99); MONOCYTES % (AUTO) 7.8 % (3.0-13.0); PLATELET COUNT (AUTO) 295 K/uL (130-400); RED BLOOD CELL COUNT(AUTO) 4.38 MIL/uL (4.00-5.50); RED CELL DISTRIBUTION WIDTH 15.2 % (11.0-15.5); WHITE BLOOD COUNT (AUTO) 9.2 K/uL (4.8-10.8)
[2022-05-17 13:34] LABS: CARBON DIOXIDE 30 mmol/L (21-32); CHLORIDE 105 mmol/L (101-111); CREATININE 0.7 mg/dL (0.5-1.5); GLOMERULAR FILTR. RATE CALC 99 mL/min (>90); GLUCOSE,RANDOM 110 mg/dL (70-105); POTASSIUM 3.1 mmol/L (3.5-5.1); SODIUM SERUM 141 mmol/L (136-145); UREA NITROGEN, BLOOD 9 mg/dL (7-18)
[2022-05-17 13:39] LABS: ALANINE AMINOTRANSFERASE 29 U/L (12-78); ALBUMIN 3.8 g/dL (3.5-5.0); ASPARTATE AMINOTRANSFERASE 25 U/L (10-37); TOTAL PROTEIN, SERUM 6.7 g/dL (6.0-8.3)
[2022-05-17 13:50] LABS: LIPASE < 50 U/L (114-286)
[2022-05-17 15:00] LABS: APPEARANCE,URINE CLEAR (CLEAR); BILIRUBIN,URINE NEGATIVE (NEGATIVE); COLOR,URINE COLORLESS (YELLOW); GLUCOSE, URINE (UA) NEGATIVE (NEGATIVE); KETONES,URINE NEGATIVE (NEGATIVE); LEUKOCYTE ESTERASE ,URINE NEGATIVE Leu/uL (NEGATIVE); NITRATE,URINE NEGATIVE (NEGATIVE); OCCULT BLOOD,URINE NEGATIVE (NEGATIVE); PROTEIN,URINE NEGATIVE (NEGATIVE); UROBILINOGEN,URINE 0.2 mg/dL (0.2-1.0)
[2022-05-17] MEDS ORDERED: LACT20PA6 PO (15:30)
[2022-05-17 16:24] VITALS: BP 119/49
== END 2022-05-17 16:25 | disposition home or self-care (01) ==
LOC: EDH 12:20
DX: K59.00 Constipation, unspecified (principal); E11.9 Type 2 diabetes mellitus without complications; E78.00 Pure hypercholesterolemia, unspecified; Z79.51 Long term (current) use of inhaled steroids; Z79.899 Other long term (current) drug therapy; Z88.5 Allergy status to narcotic agent; Z88.8 Allergy status to other drugs, medicaments and biological substances
CPT/HCPCS: 36415; 74018; 74176; 80053; 81003; 83690; 85025

== ENCOUNTER 2022-07-10 15:30 | Emergency (ER) | payer OTHER, MEDICARE ==
[~2022-07-10] VITALS: Ht 160 cm; Wt 59.0 kg
[~2022-07-10 15:30] MED LIST changes: +LACT20PA6 PO
[2022-07-10 16:04] LABS: BASOPHILS % (AUTO) 0.4 % (0.0-5.0); EOSINOPHILS % (AUTO) 0.5 % (0.0-8.0); HEMATOCRIT 35.7 % (36-48); MEAN CORPUSCULAR HGB CONC 31.7 g/dL (32.0-36.0); MEAN CORPUSCULAR VOLUME 82.1 fL (79-99); MONOCYTES % (AUTO) 5.8 % (3.0-13.0); NEUTROPHILS % (AUTO) 79.9 % (40.0-77.0); PLATELET COUNT (AUTO) 290 K/uL (130-400); RED BLOOD CELL COUNT(AUTO) 4.35 MIL/uL (4.00-5.50); RED CELL DISTRIBUTION WIDTH 14.6 % (11.0-15.5); WHITE BLOOD COUNT (AUTO) 8.2 K/uL (4.8-10.8)
[2022-07-10 16:28] LABS: ALANINE AMINOTRANSFERASE 33 U/L (12-78); ALBUMIN 4.1 g/dL (3.5-5.0); ASPARTATE AMINOTRANSFERASE 31 U/L (10-37); CARBON DIOXIDE 26 mmol/L (21-32); CHLORIDE 108 mmol/L (101-111); CREATININE 0.6 mg/dL (0.5-1.5); GLOMERULAR FILTR. RATE CALC 103 mL/min (>90); GLUCOSE,RANDOM 108 mg/dL (70-105); SODIUM SERUM 144 mmol/L (136-145); TOTAL PROTEIN, SERUM 7.1 g/dL (6.0-8.3); UREA NITROGEN, BLOOD 14 mg/dL (7-18)
[2022-07-10 16:29] LABS: LIPASE < 50 U/L (114-286)
[2022-07-10 16:32] LABS: POTASSIUM 2.8 mmol/L (3.5-5.1)
[2022-07-10 17:21] LABS: APPEARANCE,URINE CLOUDY (CLEAR); BILIRUBIN,URINE NEGATIVE (NEGATIVE); COLOR,URINE YELLOW (YELLOW); GLUCOSE, URINE (UA) NEGATIVE (NEGATIVE); KETONES,URINE 10 mg/dL (NEGATIVE); LEUKOCYTE ESTERASE ,URINE 75 Leu/uL (NEGATIVE); NITRATE,URINE NEGATIVE (NEGATIVE); OCCULT BLOOD,URINE NEGATIVE (NEGATIVE); PROTEIN,URINE 30 mg/dL (NEGATIVE)
[2022-07-10 17:42] LABS: BACTERIA,URINE FEW /HPF (None Seen); CALCIUM OXALATE CRYSTALS,UR MOD /LPF (None Seen); MUCUS,URINE FEW LPF (None Seen); SQUAMOUS EPITHELIAL CELL,UR RARE /HPF (0-2); URIC ACID CRYSTALS,URINE FEW /LPF (None Seen)
[2022-07-10] MEDS ORDERED: CEFTRIAXONE 2GM VIAL IVPB ONE (18:00)
[2022-07-10] MEDS ORDERED: POTASSIUM BICARB/CIT AC 25 MEQ TABLET.EFF PO ONE (18:00)
[2022-07-10] MEDS ORDERED: MAGNESIUM 2GM PREMIX 50ML 50 ML IV SCH (19:00)
[2022-07-10] MEDS ORDERED: IOHEXOL 350 MG/ML 100ML INFUS..BTL IV ONE (19:11)
[2022-07-10 21:00] VITALS: BP 134/75
[2022-07-12] MEDS ORDERED: FLUT16H NS (01:41)
[2022-07-12] MEDS ORDERED: FOLI0.8T3 PO (01:41)
[2022-07-12] MEDS ORDERED: ALBU2.5V2 IH (01:41)
[2022-07-12] MEDS ORDERED: LORA2ORA5 PO (01:41)
[2022-07-12] MEDS ORDERED: ALBUHFA IH (01:41)
[2022-07-12] MEDS ORDERED: MECL-160 PO (01:41)
[2022-07-12] MEDS ORDERED: DICL20GE TP (01:41)
[2022-07-12] MEDS ORDERED: PREN-67 PO (01:41)
[2022-07-12] MEDS ORDERED: IPRA0.2S54 IH (01:41)
[2022-07-12] MEDS ORDERED: LINA290C PO (01:41)
[2022-07-12] MEDS ORDERED: FLUT1BLS3 IH (01:41)
[2022-07-12] MEDS ORDERED: LAMO200T10 PO (01:41)
[2022-07-12] MEDS ORDERED: LUMA21CA PO (01:41)
[2022-07-12] MEDS ORDERED: NALT50TA PO (01:41)
[2022-07-12] MEDS ORDERED: DULO60CA64 PO (01:41)
[2022-07-12] MEDS ORDERED: PREMC VG (01:41)
[2022-07-12] MEDS ORDERED: ATOR10TA69 PO (01:41)
[2022-07-12] MEDS ORDERED: LEVE500T19 PO (01:41)
== END 2022-07-10 21:06 | disposition home or self-care (01) ==
LOC: EDH 15:30
DX: R10.9 Unspecified abdominal pain (principal); I10 Essential (primary) hypertension; E11.9 Type 2 diabetes mellitus without complications; F31.9 Bipolar disorder, unspecified; F20.9 Schizophrenia, unspecified; Z88.8 Allergy status to other drugs, medicaments and biological substances; Z79.899 Other long term (current) drug therapy
CPT/HCPCS: 99285; 74178; 96365; 71045; 83735; 84484; 80053; 83690; 85025; 87088; 81001; 36415; 74018; 93005; J0696; Q9967